=== PATIENT | female | born 1960 | race Two or more races ===

== ENCOUNTER 2017-07-03 14:09 | Emergency (ER) | payer BC ==
[~2017-07-03] VITALS: Ht 162.6 cm; Wt 92.2 kg
[~2017-07-03 14:09] MED LIST: ALEVE220 MG PO; ASPIR 8181 M1 PO; PANTOPRAZOLE SO40 MG PO; ZANTAC150 MG PO
[2017-07-03 14:54] LABS: HEMATOCRIT 42.6 % (36.0-46.0); HEMOGLOBIN 14.5 G/DL (11.9-15.5); MCV 88.2 FL (83-99); PLATELET COUNT 241 K/uL (156-360); RBC DIS.WIDTH-CV 12.5 % (11.8-14.6); RBC DIS.WIDTH-SD 40.3 % (39-53); RED BLOOD COUNT 4.83 M/uL (3.80-5.20)
[2017-07-03 15:05] LABS: ALBUMIN 4.4 g/dL (3.2-4.8); CHLORIDE 105 mEq/L (99-109); POTASSIUM 4.2 mEq/L (3.7-5.4); SODIUM 142 mEq/L (136-147)
[2017-07-03 15:06] LABS: APPEARANCE CLEAR ((CLEAR)); BILIRUBIN NEGATIVE; BLOOD NEGATIVE; COLOR YELLOW ((YELLOW)); GLUCOSE (STRIP) NEGATIVE; KETONES 5; LEUKOCYTES NEGATIVE; NITRITE NEGATIVE; PROTEIN (STRIP) NEGATIVE; SPECIFIC GRAVITY 1.016 (1.000-1.030); UCUL ADDED? NO; UROBILINOGEN 0.2 MG/DL (0.2-1.0)
[2017-07-03 15:07] LABS: GLUCOSE 93 mg/dL (70-99); TOTAL PROTEIN 7.5 g/dL (6.4-8.3)
[2017-07-03 15:09] LABS: TOTAL BILIRUBIN 0.6 mg/dL (0.0-1.0)
[2017-07-03 15:11] LABS: ALKALINE PHOSPHATASE 53 IU/L (3-129); CREATININE 0.9 mg/dL (0.6-1.3); GFR ESTIMATE (CALCULATED) > 59 mL/min/
[2017-07-03 15:12] LABS: UREA NITROGEN (BUN) 17 mg/dL (9-23)
[2017-07-03 15:13] LABS: AST (GOT) 15 IU/L (2-34)
[2017-07-03 15:14] LABS: ALT (GPT) 19 IU/L (3-49)
[2017-07-03 15:20] LABS: QUANTITATIVE HCG < 4.0 MIU/ML
[2017-07-03] MEDS ORDERED: REGLAN10 MG PO (16:07)
[2017-07-03] MEDS ORDERED: LEVSIN0.125 MG PO (16:07)
[2017-07-03 16:29] VITALS: BP 139/80
== END 2017-07-03 16:32 | disposition home or self-care (01) ==
LOC: EME 14:09
PROVIDERS: Nurse Practitioner Family
DX: R10.31 Right lower quadrant pain (principal); R14.0 Abdominal distension (gaseous); R11.0 Nausea; E06.3 Autoimmune thyroiditis; Z88.1 Allergy status to other antibiotic agents; Z79.82 Long term (current) use of aspirin
CPT/HCPCS: 74177; 80053; 81003; 84702; 85027; 99281; 99285; J1885; J2765; J7120